=== PATIENT | female | born 1990 | race Caucasian/White ===

== ENCOUNTER → 2016-06-26 | Day surgery (SDC) | payer BC ==
[2016-06-19 15:37] VITALS: Ht 157.5 cm; Wt 50.0 kg
--- NOTE | 2016-06-25 15:18 | HISTORY & PHYSICAL EXAMINATION ---
DATE OF ADMISSION: 06/26/2016 HISTORY OF PRESENT ILLNESS: A 25-year-old presents for followup and preoperative evaluation requesting surgery to painful bunion deformity on her left foot. Severity of the condition is graded as a 7 on a 10 point scale gradually worsened over time. She describes the pain as intermittent and throbbing. Condition was first noted over 2 years ago. She denies any recent exposure, persistent pain or event or history of condition. Associated signs and symptoms include pain, pain ambulating in closed in shoe gear, pain with weightbearing. She indicates ice improves the condition and orthotics improves the condition and shoe gear improves the condition. Past treatment and tests include accommodative padding, accommodative shoes, insoles, nonsteroidals padding and shoe gear modification. Due to the nature and severity of the discomfort, the patient is requesting surgical intervention. PAST SURGICAL HISTORY: Oral surgery in 2014. PAST MEDICAL HISTORY: Ovarian cyst. MEDICATIONS: control pills. ALLERGIES: No known drug allergies. FAMILY HISTORY: Lung cancer, brain cancer, thyroid cancer, gastrointestinal problems, thyroid disease. SOCIAL HISTORY: The patient denies smoking, alcohol use, illicit drug use, and STDs. REVIEW OF SYSTEMS: Unremarkable except chief complaint. PHYSICAL EXAMINATION: VITAL SIGNS: BP 112/76, temperature is 98.6, height 5'2, weight 115 pounds. Body mass index 21. CONSTITUTIONAL: The patient appears well-developed and nourished with good attention to body grooming and habitus. HEAD AND FACE: Head is normocephalic and atraumatic without any gross head, face, or neck masses. EYES: Conjunctival and pupillary light and accommodation are normal. EARS, NOSE, MOUTH, AND THROAT: Unremarkable. Lips are pale and pink, moist without any lesions, or gingival hypertrophy. NECK EXAMINATION: Neck is supple. Trachea is midline without any adenopathy or crepitance palpable. CARDIOVASCULAR EXAMINATION: Normal S1, S2 without murmur, gallops, rubs, or clicks noted. Cardiovascular exam is normal. RESPIRATORY: Chest is symmetric. No scars are visible. No port or pacemaker. LUNGS: Clear to auscultation bilaterally and equal. GASTROINTESTINAL EXAMINATION: Abdominal organs, bladder, and kidneys show no abnormalities, masses, tenderness, or rigidity. LYMPHATIC EXAMINATION: No popliteal, inguinal, or supraclavicular lymphadenopathy noted. LOWER EXTREMITY EXAMINATION: Pulses bilaterally dorsalis pedis, posterior tibial pulse palpable. Digital hair is present. DERMATOLOGIC: Inspection of interphalangeal joint, metatarsophalangeal joint, left hallux shows hyperkeratosis. Left second intermetatarsal shows a tattoo. There is redness noted over the first MTPJ over the left hallux. NEUROLOGIC: Touch, pin, vibratory pain, proprioception sensations are normal. Deep tendon reflexes normal. MUSCULOSKELETAL: Muscle tone is normal. Muscle strength 5/5 all groups tested. First metatarsophalangeal joint shows evidence of painful palpable dorsal medial eminence on the left, track bound range of motion of left, painful end range of plantarflexion on the right. Left second and right second show retrograde buckling across the metatarsophalangeal joint. IMPRESSION: 1. Hallux abductovalgus deformity, left greater than right, degenerative joint disease, first metatarsophalangeal joint on the left, hammertoes, left second metatarsophalangeal joint bilaterally. 2. Difficulty walking. 3. Pain lower extremity on the left. PLAN: Discussed mechanical and conservative treatment options with the patient. Conservative treatment consisting of extra depth shoes, accommodative padding, palliative debridement, steroid injection, nonsteroidals, orthotics. Pneumatic COM immobilization. Due to the nature and severity of the discomfort, she is requesting surgical intervention and surgery to be performed: Surgical procedures to be performed Modified Miguel closing base wedge osteotomy, left foot. This will be performed under general anesthesia as an outpatient at surgery center. The procedure, risks and complications were fully reviewed with the patient. Consent form, foot diagram and illustration reviewed in all their entirety. All the patient's questions were answered. Complications were discussed in detail with the patient including pain, infection, swelling that may or may not be excessive, pins and needles feeling, delayed or nonhealing of skin, enlarged scar, failure of the procedure, recurrence or worsening of condition which may or may not require further surgery, adverse reaction to anesthesia, allergic reaction to suture or other implant material, loss of toe, foot, or leg, flail toe, stiff toe, short toe, elevated toe, transfer lesion or callus, peripheral neurovascular complications such as phlebitis, damage to nerves or vascular structures, severe or chronic pain, chronic nerve pain or damage, and general medical complications. The patient will be required to be in nonweightbearing in cast immobilized for 6-8 weeks followed by weightbearing cast immobilization for an additional 2-4 weeks and not to dress shoes for 10-16 weeks depending on the postoperative edema. The patient is aware this is an elective type procedure and I recommend a second opinion. The patient stated they understood. Consent form was signed with a copy of the foot diagram and illustration given to patient. Verbal and written postop instructions were given. The patient will be required to be nonweightbearing cast from 6-8 weeks and not return to dress shoe for 10-16 weeks depending on postop edema. The patient will return to the office for a postop check or sooner if medically necessary. Instructed to keep dressing clean, dry and intact until seen at the office. At time of the preoperative appointment, prescriptions for Percocet and Keflex were dispensed. The patient will return to the office for a postoperative visit. GABRIEL
[~2016-06-26] VITALS: Ht 157.5 cm; Wt 50.0 kg
[~2016-06-26] MED LIST: ATROPINE SULFATE 0.1 MG/ML 5ML SYR IV PRN; BCPILLS PO; BUPIVACAINE 0.5 % 5 MG/1 ML MPF 30ML VIAL ONE; CEFAZOLIN 1000MG/55 ML D5W IV SCH; DEXAMETHASONE SOD INJ 4 MG/ML VIAL IV PRN; DEXAMETHASONE SOD INJ 4 MG/ML VIAL ONE; EpHEDrine SULFATE INJ 50 MG/ML AMP IV PRN; FENTANYL CITRATE INJ 50 MCG/1 ML 2 ML VIAL IV PRN; FENTANYL CITRATE INJ 50 MCG/1 ML 2 ML VIAL ONE; KETOROLAC TROMETHAMINE 30 MG/ML VIAL IV. PRN; KETOROLAC TROMETHAMINE 30 MG/ML VIAL ONE; LABETALOL HCL IV 5 MG/ML 20ML IV PRN; LACTATED RINGER'S 1000ML 1,000 ML IV SCH; LIDOCAINE HCL 2% 2 ML VIAL (20MG/ML) ONE; METOCLOPRAMIDE HCL INJ 5 MG/ML 2 ML VIAL IV PRN; MIDAZOLAM HCL 1 MG/ML 2ML VIAL ONE; MoRPHine SULFATE 10 MG/ML CARP/VIAL IV PRN; ONDANSETRON INJ 2 MG/ML 2 ML VIAL IV PRN; ONDANSETRON INJ 2 MG/ML 2 ML VIAL ONE; PHENYLEPHRINE 100MCG/ML 5ML SYR IV PRN; PROPOFOL IV EMULSION 10 MG/ML 20 ML VIAL IV ONE; ROPIVACAINE 0.5% 5 MG/ML 30 ML VIAL ONE; SODIUM CHLORIDE 0.9% 1000ML 1,000 ML IV SCH
--- NOTE | 2016-06-26 06:26 | History & Physical Bridge - SC ---
H&P Re-Evaluation Bridge Note: I have examined the patient, reviewed the History & Physical and in the interval since the performance of the History & Physical I have noted the following changes of clinical significance: No changes noted
--- NOTE | 2016-06-26 06:27 | Discharge Instructions-SurgCtr ---
Discharge Instructions Visit Reason for Visit: Left Foot Hav Discharge Discharge Diagnosis / Problem: same as diagnosis Discharge Goals Goal(s): Decrease discomfort Activity Recommendations Activity Limitations: as noted below Medications: * Resume previous medications unless instructed by your surgeon. * Take your medications as prescribed. Call our office ([phone]) at any time, if you experience severe pain that does not subside shortly after taking your pain medication. Activity: * Do not put any standing weight on your operated foot/ankle. Use the crutches or walker as instructed. Special Care: * Keep your bandage clean and dry. Do not remove your bandage unless otherwise instructed. A small amount of blood may appear on the bandage over the surgical site. Call our office ([phone]) if you bandage becomes blood-soaked or wet. * Elevate your operated foot/ankle on pillows, above the level of your heart, as often as possible during the first 2-3 days following surgery. Keep your knee flexed slightly with a pillow under your knee when you elevate your foot/ankle. * Apply a ice bag to your foot/ankle over the operative site for 20-30 minutes out of each hour while you are awake. Do not allow the ice bag to directly contact bare skin. * Avoid bumping or handling any pins visible in your toes. If any pin feels or appears loose, call the office ([phone]). * Take your oral temperature in the morning and at bedtime. Call our office ([phone]) if your temperature rises above 101 degrees Fahrenheit. Call your surgeon's office at ([phone]) for any problems or concerns such as excessive bleeding and/or pain unrelieved by your prescribed pain medications. If you have any questions, please do not hesitate to ask them. Avoid all tobacco products. If you need help to stop smoking, call [place]'s FREE QUITLINE at . This is a free call. Follow-up: Follow-up with Dr. Pinon Anesthesia . Post Anesthesia Instructions: If you have had General Anesthesia or IV Sedation: * Do not drive today. * Resume driving when surgeon permits. * Do not make important decisions or sign legal documents today. * Call surgeon for: 1. Temperature elevations greater than 101 degrees F. 2. Uncontrollable pain. 3. Excessive bleeding. 4. Persistent nausea and vomiting. 5. Medication intolerance (nausea, vomiting or rash). * For nausea and vomiting use only clear liquids such as: tea, soda, bouillon until nausea subsides, then gradually increase diet as tolerated. * If you have any concerns or questions, call your surgeon's office. If physician is unavailable and it is an emergency, call 911 or go to the nearest emergency room. . Diet Recommendations Home Diet: resume previous diet Pending Studies Studies pending at discharge: no Medical Emergencies . Who to Call and When: Medical Emergencies: If at any time you feel your situation is an emergency, please call 911 immediately. . Non-Emergent Contact Non-Emergency issues call your: Primary Care Provider . . "Provider Documentation" section prepared by Rere Arguelles.
--- NOTE | 2016-06-26 09:02 | OPERATIVE REPORT ---
DATE OF OPERATION: 06/26/2016 SURGEON: Rere Pinon DPM PREOPERATIVE DIAGNOSES: 1. Bunion left. 2. Pain, left. 3. Capsulitis, left first metatarsophalangeal joint. POSTOPERATIVE DIAGNOSES: Same. ANESTHESIA: General with popliteal block performed by anesthesia and 10 mL of 0.5% Marcaine plain infiltrated in the surgery site. PROCEDURES: 1. Modified Miguel with tenotomy abductor hallucis, left. 2. Closing base wedge osteotomy, left. 3. Tenotomy extensor hallus brevis, left first MTPJ. HEMOSTASIS: Pneumatic calf tourniquet inflated to a level of 250 mmHg for a total tourniquet time of 46 minutes. ESTIMATED BLOOD LOSS: Minimal. MATERIALS: 2-0, 3-0 Vicryl; 4-0 nylon; 5-0 PDS; screws x2, 2.7 Synthes mini frag screws stainless measuring 14 and 18 mm. INJECTABLES: None. HISTOPATHOLOGY: Bone sent. COMPLICATIONS: None. DISPOSITION: The patient tolerated the procedure and anesthesia well without complications, transferred to recovery room with vital signs stable and neurovascular status intact. DESCRIPTION OF PROCEDURE: The patient was brought to the OR and placed on the OR table in supine position. Upon completion of general anesthesia by the anesthesia department and popliteal block at their recommendation and then recommended infiltrated the area with 10 mL Marcaine plain due to questionable block status. The area was infiltrated. The extremity was scrubbed, prepped and draped in the usual aseptic fashion prior to placing a well-padded calf tourniquet onto the left extremity. The extremity was scrubbed, prepped and draped. Attention was directed to the first metatarsophalangeal joint of the left foot where an incision was made just medial to tendon extensor hallucis longus. Dissection was carried down to the level of capsular structures. At this time, the abductor tendon tenotomy was performed releasing it from the lateral aspect of the joint. The sesamoid was under the first metatarsal, was bound down fair amount, although removal was not necessary. The ligaments were released from the sesamoid and it was under the first metatarsal head. At this time, a long linear capsulotomy was created in the first metatarsal. Attention was directed towards the base where a guidewire was placed medially. Osteotomy was created in the base of the first metatarsal reducing intermetatarsal angle temporarily fixated with a bone clamp, 2 screws in AO fashion, 1 perpendicular to the osteotomy and 1 perpendicular to the bone were placed across the osteotomy site. It should be noted that the medial cortical hinge was left intact during this and the metatarsal was slightly plantarflexed and with angulation, the toe account for any shortening. The wound was copiously lavaged with normal sterile saline. Closure began of the capsular structures using 2-0 Vicryl in a box technique. Skin margins were closed using 3-0 Vicryl in a box technique. Skin margins were closed using 5-0 PDS and subcutaneous fascia interspersed with 4-0 nylon in simple interrupted fashion. Pneumatic ankle tourniquet was released with normal george to digits 1 through 5. Dry sterile compressive dressing consisting of Adaptic, 4 x 4's, Johnna, Bennie, and a Cam walker were placed. It should be noted fluoroscan was used throughout the case to check for positioning and postop films were taken prior to recovery. I attest to the content of the Intraoperative Record and any orders documented therein. Any exceptions are noted below. GABRIEL
--- NOTE | 2016-06-26 09:48 | Anesthesia Progress Nt - [facility] ---
Anesthesia Post Op Note Date & Time Jun 26, 2016 at 09:48 Vital Signs Pain Intensity: 0 Vital Signs Past 12 Hours Date Time Temp Pulse Resp B/P Pulse Ox O2 Delivery O2 Flow Rate FiO2 06/26/16 09:15 90 16 114/44 98 Room Air 06/26/16 08:59 115/75 06/26/16 08:59 115/75 06/26/16 08:55 104 15 100 06/26/16 08:55 103 15 06/26/16 08:55 103 15 06/26/16 08:55 104 15 100 06/26/16 08:54 36.6 96 15 109/72 99 Room Air 06/26/16 08:53 109/72 06/26/16 08:53 109/72 06/26/16 08:50 98 11 99 06/26/16 08:50 97 11 06/26/16 08:50 98 11 99 06/26/16 08:50 97 11 06/26/16 08:48 120/68 06/26/16 08:48 120/68 06/26/16 08:45 106 16 06/26/16 08:45 106 16 99 06/26/16 08:45 106 16 99 06/26/16 08:45 106 16 06/26/16 08:44 112/77 06/26/16 08:44 112/77 06/26/16 08:40 104 10 06/26/16 08:40 104 10 100 06/26/16 08:40 104 10 100 06/26/16 08:40 104 10 06/26/16 08:38 104/75 06/26/16 08:38 104/75 06/26/16 08:35 100 12 100 06/26/16 08:35 100 12 06/26/16 08:35 100 12 100 06/26/16 08:35 100 12 06/26/16 08:33 110/68 06/26/16 08:33 110/68 06/26/16 08:30 114 14 06/26/16 08:30 36.7 114 12 115/67 99 Diffusion Mask 6 06/26/16 08:30 114 14 17 08:30 113 14 100 06/26/16 08:30 113 14 100 06/26/16 08:28 115/67 06/26/16 08:28 115/67 06/26/16 07:10 0 06/26/16 07:10 0 06/26/16 07:09 0 06/26/16 07:08 115/62 06/26/16 07:06 78 21 100 06/26/16 07:06 82 06/26/16 07:03 105/63 06/26/16 07:01 72 06/26/16 07:01 73 100 06/26/16 06:58 106/56 06/26/16 06:56 89 06/26/16 06:56 87 0 100 06/26/16 06:54 98/64 06/26/16 06:52 104/64 06/26/16 06:51 108 06/26/16 06:51 93 23 82 06/26/16 06:29 36.8 98 20 122/75 98 Room Air Notes Mental Status: alert / awake / arousable, participated in evaluation Pt Amnestic to Procedure: Yes Nausea / Vomiting: adequately controlled Pain: adequately controlled Airway Patency, RR, SpO2: stable & adequate BP & HR: stable & adequate Hydration State: stable & adequate Anesthetic Complications: no major complications apparent
[2016-06-26 09:50] VITALS: BP 106/71; TEMP 36.7; O2SAT 100
--- NOTE | 2016-06-26 12:53 | DIAGNOSTIC IMAGING REPORT ---
PORTABLE LEFT FOOT 2 VIEWS CLINICAL HISTORY: Postoperative study COMPARISON STUDY: None FINDINGS: 2 views reveal postsurgical changes of a first metatarsal osteotomy and bunionectomy. There are 2 metatarsal screws. There is air within the soft tissues consistent with recent surgery IMPRESSION: Postsurgical changes of a first metatarsal osteotomy. Electronically signed by: Poli White M.D. 06/26/2016 12:51 PM Dictated Date/Time: 06/26/2016 12:50 PM
--- NOTE | 2016-06-26 12:54 | DIAGNOSTIC IMAGING REPORT ---
INTRAOPERATIVE LEFT FOOT 2 VIEWS CLINICAL HISTORY: LEFT FOOT MODIFIED PATEL, OSTEOTOMY COMPARISON STUDY: None FLUOROSCOPY TIME: 2.9 seconds. 2 fluoroscopic spot images were obtained FINDINGS: 2 views reveal postsurgical changes of a first metatarsal osteotomy. 2 screws are visualized. The patient also appears be status post a first metatarsal head bunionectomy. IMPRESSION: Postsurgical changes of a first metatarsal osteotomy. Electronically signed by: Poli White M.D. 06/26/2016 12:52 PM Dictated Date/Time: 06/26/2016 12:51 PM
== END | disposition home or self-care (01) ==
LOC: X.SURG 06:19
PROVIDERS: ATTEND Podiatrist Foot & Ankle Surgery
DX: M21.612 Bunion of left foot (principal); N91.2 Amenorrhea, unspecified; E22.1 Hyperprolactinemia; E28.2 Polycystic ovarian syndrome; N39.0 Urinary tract infection, site not specified; N76.0 Acute vaginitis; Z83.49 Family history of other endocrine, nutritional and metabolic diseases; Z80.1 Family history of malignant neoplasm of trachea, bronchus and lung; Z80.8 Family history of malignant neoplasm of other organs or systems

== ENCOUNTER → 2016-12-09 | Outpatient (CLI) | payer BC ==
[~2016-12-09] MED LIST changes: -ATROPINE SULFATE 0.1 MG/ML 5ML SYR IV PRN; -BUPIVACAINE 0.5 % 5 MG/1 ML MPF 30ML VIAL ONE; -CEFAZOLIN 1000MG/55 ML D5W IV SCH; -DEXAMETHASONE SOD INJ 4 MG/ML VIAL IV PRN; -DEXAMETHASONE SOD INJ 4 MG/ML VIAL ONE; -EpHEDrine SULFATE INJ 50 MG/ML AMP IV PRN; -FENTANYL CITRATE INJ 50 MCG/1 ML 2 ML VIAL IV PRN; -FENTANYL CITRATE INJ 50 MCG/1 ML 2 ML VIAL ONE; -KETOROLAC TROMETHAMINE 30 MG/ML VIAL IV. PRN; -KETOROLAC TROMETHAMINE 30 MG/ML VIAL ONE; -LABETALOL HCL IV 5 MG/ML 20ML IV PRN; -LACTATED RINGER'S 1000ML 1,000 ML IV SCH; -LIDOCAINE HCL 2% 2 ML VIAL (20MG/ML) ONE; -METOCLOPRAMIDE HCL INJ 5 MG/ML 2 ML VIAL IV PRN; -MIDAZOLAM HCL 1 MG/ML 2ML VIAL ONE; -MoRPHine SULFATE 10 MG/ML CARP/VIAL IV PRN; -ONDANSETRON INJ 2 MG/ML 2 ML VIAL IV PRN; -ONDANSETRON INJ 2 MG/ML 2 ML VIAL ONE; -PHENYLEPHRINE 100MCG/ML 5ML SYR IV PRN; -PROPOFOL IV EMULSION 10 MG/ML 20 ML VIAL IV ONE; -ROPIVACAINE 0.5% 5 MG/ML 30 ML VIAL ONE; -SODIUM CHLORIDE 0.9% 1000ML 1,000 ML IV SCH
== END | disposition home or self-care (01) ==
LOC: C.PAPS 14:16
PROVIDERS: ATTEND Obstetrics & Gynecology
DX: Z01.419 Encounter for gynecological examination (general) (routine) without abnormal findings (principal)

== ENCOUNTER → 2016-12-27 | Outpatient (CLI) | payer BC | END | disposition home or self-care (01) | LOC: C.LAB1850 09:14 | PROVIDERS: ATTEND Obstetrics & Gynecology | DX: E22.1 Hyperprolactinemia (principal) ==

== ENCOUNTER → 2017-01-31 | Outpatient (CLI) | payer BC ==
--- NOTE | 2017-01-31 14:41 | DIAGNOSTIC IMAGING REPORT ---
LEFT LOWER EXTREMITY WITHOUT CLINICAL HISTORY: 26 years-old Female presenting with LEFT FOOT, OSTEOTOMY HEALING. TECHNIQUE: Multidetector CT of the left foot was performed without the use of intravenous contrast. IV contrast: None. A dose lowering technique was used consistent with the principles of ALARA (as low as reasonably achievable). COMPARISON: Plain film from 06/26/2016. CT DOSE (mGy.cm): The estimated cumulative dose is 64.58. 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 2 screw fixation across the proximal metaphysis of the first metatarsal. This is unchanged from prior radiograph and June 2016. Evidence of interval healing of the proximal metaphyseal fracture with bridging callus formation. A fracture plane is no longer visible. No hardware complication evident. No malalignment. No significant degenerative change at the medial cuneiform metatarsal articulation. No other bony abnormality. Ankle mortise intact. IMPRESSION: 2 screw fixation of the proximal metaphysis of the first metatarsal. No fracture plane is evident. No hardware complication. Electronically signed by: Emanuel Sterling M.D. 01/31/2017 2:39 PM Dictated Date/Time: 01/31/2017 2:36 PM
== END | disposition home or self-care (01) ==
LOC: C.CTS 14:13
PROVIDERS: ATTEND Podiatrist Foot & Ankle Surgery
DX: M79.672 Pain in left foot (principal)

== ENCOUNTER 2017-04-29 05:31 | Day surgery (SDC) | payer BC ==
[2017-04-15 12:55] VITALS: Ht 157.5 cm; Wt 50.9 kg
--- NOTE | 2017-04-28 09:33 | HISTORY & PHYSICAL EXAMINATION ---
DATE OF ADMISSION: 04/29/2017 HISTORY OF PRESENT ILLNESS: This 26-year-old female presents for preop history and physical, requesting excision of hardware. She notes itching sensation located over the left foot and prominence of the hardware. She underwent bunion correction of left foot in June 2016 and is requesting hardware excision. The itching sensation ____ local irritation directly over the area of hardware. She grades this discomfort as a 5 on a 10 point scale and described it as a soreness. She first noticed it several months ago and started shortly, following the left foot surgery. Associated signs and symptoms include itching. The patient is requesting surgery for removal of hardware to the left foot. Past treatment and tests include CT scan of the left foot, accommodative padding, and accommodative shoes. Due to a local irritation, she is requesting hardware removal. PAST SURGICAL HISTORY: Oral surgery in 2014 and foot surgery in 2016. PAST MEDICAL HISTORY: Ovarian cyst. MEDICATIONS: control pills. ALLERGIES: No known medical allergies. FAMILY HISTORY: Lung cancer, brain cancer, thyroid cancer, gastrointestinal problems, and thyroid disease. SOCIAL HISTORY: The patient denies smoking, alcohol use, illicit drug use, and STDs. REVIEW OF SYSTEMS: Unremarkable except chief complaint. PHYSICAL EXAMINATION: VITAL SIGNS: Height 5 feet 2 inches and weight 114 pounds. Body mass index 21. Blood pressure is 110/72. CONSTITUTIONAL: The patient appears well developed and nourished with good attention to body grooming and habitus. HEAD AND FACE: Head is normocephalic and atraumatic without any gross head, face, or neck masses. EYES: Conjunctival and pupillary reaction to light and accommodation are normal. EARS, NOSE, MOUTH, AND THROAT: Unremarkable. NECK: Neck is supple. Trachea is midline without any adenopathy or crepitance palpable. CARDIOVASCULAR: Normal S1 and S2 without murmur, gallops, rubs, or clicks noted. Cardiovascular exam is normal. RESPIRATORY: Chest is symmetric. No scars are visible. No port or pacemaker. LUNGS: Clear to auscultation bilaterally and equal. GASTROINTESTINAL: Abdominal organs, bladder, and kidneys show no abnormalities, masses, tenderness, or rigidity. LYMPHATIC: No popliteal, inguinal, or supraclavicular lymphadenopathy noted. LOWER EXTREMITY EXAMINATION: Feet are pink and warm with no evidence of vascular insufficiency. Postoperative site shows evidence of edema. DERMATOLOGIC: Left first MTP joint shows cicatrix. The right hallux shows redness. Examination of the surgery site shows no hypertrophy. There is a palpable screw head noted medially on deep palpation. NEUROLOGICAL: Touch, pin, vibratory and proprioception sensations are normal. MUSCULOSKELETAL: Muscle tone is normal. Muscle strength 5/5 at all groups tested. Alignment of the first ray is good on the left. ____ fracture plane is no longer visible on 01/31/2017 on the left foot. IMPRESSION: 1. Hallux abductovalgus deformity, status post surgery on the left. 2. Local irritation due to retained hardware, left foot. PLAN: Surgical procedure to be performed is excision of hardware in the left. This will be performed under general anesthesia as an outpatient at the hospital. The procedure, risks and complications were fully reviewed with the patient. Consent form, foot diagram and illustration reviewed in all their entirety. All the patient's questions answered. Complications were discussed in detail with the patient including pain, infection, swelling that may or may not be excessive, pins and needles feeling, numbness, metatarsalgia, excessive bleeding, delayed or nonhealing bone, delayed or nonhealing of skin, enlarged scar, failure of the procedure, reoccurrence or worsening condition which may or may not require further surgery, adverse reactions to anesthesia, allergic reaction to suture or other implant material, loss of toe, foot, or leg, flail toe, stiff toe, short toe, elevated toe, transfer lesion or callus, peripheral neurovascular complications such as phlebitis, damage to nerves or vascular structures, severe or chronic pain, chronic nerve pain or damage, and general medical complications. The patient will be required to be in a Cam walker for a minimum of 2-4 weeks and not return to sneaker for 2-4 weeks depending on postop edema. The patient is aware that this is an elective type procedure and I recommend a second opinion. The patient stated she understood. Consent form was signed with a copy of the foot diagram and illustration given to the patient. Verbal and written postop instructions were given. The patient will return to the office for postop check or sooner if medically necessary. Instructed to keep dressing clean, dry and intact until seen at the office. At time of the preoperative appointment, prescriptions for Keflex and acetaminophen were dispensed.
[2017-04-28 10:13] LABS: PREG INTERNAL NEGATIVE QC NEG CLEAR BACKGROUND; PREG INTERNAL POSITIVE QC POS CONTROL LINE
[~2017-04-29] VITALS: Ht 157.5 cm; Wt 50.9 kg
[~2017-04-29 05:31] MED LIST changes: +MULT-580 PO
[2017-04-29] MEDS ORDERED: CEFAZOLIN 1000MG IV PUSH 5 ML IV SCH (06:00)
[2017-04-29] MEDS ORDERED: LACTATED RINGER'S 1000ML 1,000 ML IV SCH ×2 (06:00)
[2017-04-29 06:05] VITALS: BP 129/71; PULSE 111; TEMP 36.6; O2SAT 99
[2017-04-29] MEDS ORDERED: BUPIVACAINE 0.5 % 5 MG/1 ML MPF 30ML VIAL ONE (06:56)
[2017-04-29] MEDS ORDERED: SODIUM CHLORIDE 0.9% 1000ML 1,000 ML IV SCH (07:02)
--- NOTE | 2017-04-29 07:02 | Discharge Instructions ---
Discharge Instructions Date of Service Apr 29, 2017. Admission Reason for Admission: Left Foot S/P Hallux Abducto Valgus Surgery W/Breana Discharge Discharge Diagnosis / Problem: same as Dx Discharge Goals Goal(s): Decrease discomfort Activity Recommendations Activity Limitations: as noted below Medications: * Resume previous medications unless instructed by your surgeon. * Take your medications as prescribed. Call our office ([phone]) at any time, if you experience severe pain that does not subside shortly after taking your pain medication. Activity: * You may walk on your operated foot/ankle using the surgical shoe or cast/splint. Do not put any weight on your operated foot/ankle without wearing the surgical shoe or cast sandal.. Special Care: * Keep your bandage clean and dry. Do not remove your bandage unless otherwise instructed. A small amount of blood may appear on the bandage over the surgical site. Call our office ([phone]) if you bandage becomes blood-soaked or wet. * Elevate your operated foot/ankle on pillows, above the level of your heart, as often as possible during the first 2-3 days following surgery. Keep your knee flexed slightly with a pillow under your knee when you elevate your foot/ankle. * Apply a ice bag to your foot/ankle over the operative site for 20-30 minutes out of each hour while you are awake. Do not allow the ice bag to directly contact bare skin. * Avoid bumping or handling any pins visible in your toes. If any pin feels or appears loose, call the office ([phone]). * Take your oral temperature in the morning and at bedtime. Call our office ([phone]) if your temperature rises above 101 degrees Fahrenheit. Call your surgeon's office at ([phone]) for any problems or concerns such as excessive bleeding and/or pain unrelieved by your prescribed pain medications. If you have any questions, please do not hesitate to ask them. Avoid all tobacco products. If you need help to stop smoking, call [place] FREE QUITLINE at . This is a free call. Follow-up: Follow-up with Dr. Pinon . Current Hospital Diet Patient's current hospital diet: Discharge Diet Recommended Diet: Regular Diet Pending Studies Studies pending at discharge: no Medical Emergencies . Who to Call and When: Medical Emergencies: If at any time you feel your situation is an emergency, please call 911 immediately. . Non-Emergent Contact Non-Emergency issues call your: Primary Care Provider . "Provider Documentation" section prepared by Rere Arguelles. . VTE Core Measure Inpt VTE Proph given/why not?: Contraindicated
[2017-04-29] MEDS ORDERED: MIDAZOLAM HCL 1 MG/ML 2ML VIAL ONE (07:04)
[2017-04-29] MEDS ORDERED: LIDOCAINE HCL 2% 2 ML VIAL (20MG/ML) ONE (07:04)
[2017-04-29] MEDS ORDERED: FENTANYL CITRATE INJ 50 MCG/1 ML 2 ML VIAL ONE ×2 (07:04→07:41)
[2017-04-29] MEDS ORDERED: PROPOFOL IV EMULSION 10 MG/ML 20 ML VIAL IV ONE (07:04)
[2017-04-29] MEDS ORDERED: ONDANSETRON INJ 2 MG/ML 2 ML VIAL ONE (07:32)
[2017-04-29] MEDS ORDERED: ONDANSETRON INJ 2 MG/ML 2 ML VIAL IV PRN (08:15)
[2017-04-29] MEDS ORDERED: NALOXONE HCL 0.4 MG/1 ML VIAL/CARP IV PRN (08:15)
[2017-04-29] MEDS ORDERED: ATROPINE SULFATE 0.1 MG/ML 5ML SYR IV PRN (08:15)
[2017-04-29] MEDS ORDERED: FLUMAZENIL 0.1 MG/1 ML 10 ML VIAL IV PRN (08:15)
[2017-04-29] MEDS ORDERED: HYDROmorphone INJ 1 MG/ML SYR IV PRN (08:15)
[2017-04-29] MEDS ORDERED: LABETALOL HCL IV 5 MG/ML 20ML IV PRN (08:15)
[2017-04-29] MEDS ORDERED: PROMETHAZINE HCL INJ 12.5 MG in SODIUM CHLORIDE 0.9% 50ML 50 ML IV PRN (08:15)
[2017-04-29] MEDS ORDERED: EpHEDrine SULFATE INJ 50 MG/ML AMP IV PRN (08:15)
[2017-04-29 08:40] VITALS: BP 109/56; PULSE 73; TEMP 36.9; O2SAT 97
--- NOTE | 2017-04-29 08:44 | Anesthesiology Progress Note ---
Anesthesia Post Op Note Date & Time Apr 29, 2017 at 08:44 Vital Signs Pain Intensity: 0 Vital Signs Past 12 Hours Date Time Temp Pulse Resp B/P (MAP) Pulse Ox O2 Delivery O2 Flow Rate FiO2 04/29/17 08:27 72 20 97 04/29/17 08:27 72 20 04/29/17 08:26 36.6 69 17 96/75 (80) 97 Room Air 04/29/17 08:26 96/75 04/29/17 08:22 78 15 97 04/29/17 08:22 73 15 04/29/17 08:21 97/70 04/29/17 08:19 64 11 98 04/29/17 08:19 64 11 04/29/17 08:16 92/61 04/29/17 08:14 79 14 04/29/17 08:14 77 14 97 04/29/17 08:11 106/77 04/29/17 08:09 83 16 04/29/17 08:09 81 16 97 04/29/17 08:06 103/68 04/29/17 08:04 36.7 73 16 105/67 (70) 99 Oxymask 10 04/29/17 06:05 36.6 111 18 129/71 (90) 99 Room Air Notes Mental Status: alert / awake / arousable, participated in evaluation Pt Amnestic to Procedure: Yes Nausea / Vomiting: adequately controlled Pain: adequately controlled Airway Patency, RR, SpO2: stable & adequate BP & HR: stable & adequate Hydration State: stable & adequate Anesthetic Complications: no major complications apparent
--- NOTE | 2017-04-29 08:54 | OPERATIVE REPORT ---
DATE OF OPERATION: 04/29/2017 SURGEON: Rere Pinon DPM PREOPERATIVE DIAGNOSIS: Status post hallux abductovalgus surgery with retained fixation. POSTOPERATIVE DIAGNOSIS: Same. PROCEDURE: Excision of hardware, left foot x2. HEMOSTASIS: Pneumatic ankle tourniquet inflated to a level of 250 mmHg for a total tourniquet time of 14 minutes. ESTIMATED BLOOD LOSS: 1 mL. ANESTHESIA: IV with local sedation and preoperative block given 0.5% Marcaine plain, total of 30 mL. MATERIALS: 3-0 Vicryl and 4-0 nylon. INJECTABLES: None. HISTOPATHOLOGY: Hardware sent. CONDITION: The patient tolerated the procedure and anesthesia well without complications and transferred to the recovery room with vital signs stable and neurovascular status intact. DESCRIPTION OF PROCEDURE: The patient was brought to the OR and placed on the OR table in the supine position. Upon completion of IV with local sedation, a local field block was performed with 30 mL 0.5% Marcaine plain. The foot was scrubbed, prepped and draped in the usual aseptic fashion. Attention was directed to the left foot, which was elevated and exsanguinated and tourniquet raised to a level of 250 mmHg. Using the fluoroscan, the hardware was identified. An incision was made directly over the hardware between the 2 screws with care to preserve all neurovascular structures. Dissection plane was carried down to the level of the metatarsal. Two implants 2.7 screws were removed from this area. The area was copiously lavaged. Closure began with 3-0 Vicryl in a deep mattress fashion. Skin margins were reopposed using 4-0 nylon in a simple interrupted fashion. Pneumatic ankle tourniquet was released with normal hyperemic george to digits 1 through 5. Dry sterile compressive dressing consisting of Adaptic, 4 x 4's, Johnna and an Bennie was applied. The patient was transported to the recovery room with vital signs stable and neurovascular status intact. I attest to the content of the Intraoperative Record and any orders documented therein. Any exception s are noted below.
[2017-04-29 09:08] VITALS: BP 103/68; PULSE 76; O2SAT 96
[2017-04-29 09:40] VITALS: BP 104/60; PULSE 84; TEMP 37; O2SAT 100
--- NOTE | 2017-04-29 14:45 | DIAGNOSTIC IMAGING REPORT ---
INTRAOPERATIVE LEFT FOOT 2 VIEWS CLINICAL HISTORY: LEFT FOOT EXCISION OF HARDWARE COMPARISON STUDY: CT scan dated 01/31/2017 FINDINGS: 10 seconds of fluoroscopic time was utilized. 2 intraoperative fluoroscopic spot images are provided for interpretation. There is a screw tract within the first metatarsal. The hardware has been removed. There are postsurgical changes of a prior first metatarsal osteotomy. IMPRESSION: Intraoperative radiographs demonstrating interval removal of the first metatarsal hardware. Electronically signed by: Poli White M.D. 04/29/2017 2:43 PM Dictated Date/Time: 04/29/2017 12:43 PM
== END 2017-04-29 09:45 | disposition home or self-care (01) ==
LOC: C.ACU 05:31
PROVIDERS: ATTEND Podiatrist Foot & Ankle Surgery
DX: Z47.2 Encounter for removal of internal fixation device (principal)

== ENCOUNTER 2020-02-15 06:10 | Inpatient (IN) ==
[2020-02-15] MEDS ORDERED: OXYTOCIN 30 UNITS/500ML NSS ONE (06:29)
[2020-02-15] MEDS ORDERED: OXYTOCIN 30 UNITS/500 ML BAG IV PRN ×2 (06:40→11:02)
[2020-02-15] MEDS ORDERED: LACTATED RINGER'S 1,000 ML IV PRN (06:40)
[2020-02-15 07:00] LABS: Hematocrit (blood only) 31.4 % (37-47); Hemoglobin 9.8 g/dL (12.0-16.0); Mean Corpuscular Hemoglobin 27.1 pg (25-34); Mean Platelet Volume 12.2 fL (7.4-10.4); Nucleated RBC # (auto) 0.02 K/uL (0-0); Nucleated RBC % (auto) 0.2 %; Platelet Count 289 K/uL (130-400); RDW Coefficient of Variation 15.6 % (11.5-14.5); RDW Standard Deviation 49.8 fL (36.4-46.3); Red Blood Count 3.61 M/uL (4.2-5.4); White Blood Count 13.08 K/uL (4.8-10.8)
[2020-02-15 07:11] LABS: Mean Corpuscular Hgb Conc 31.2 g/dL (32-36)
--- NOTE | 2020-02-15 07:23 | History & Physical Report ---
Date of Service February 15, 2020 Assessment & Plan (1) Normal labor: Watched patient through several contractions and then was able to reduce ant lip. Patient is very painful and not pushing effectively. Anesthesia is willing to place a spinal so she can relax some and push more effectively. FHT reassuring category two with variables with contractions. anticipate . (2) Meconium in amniotic fluid: Admission and Anticipated Discharge Date Admission Date: February 15, 2020 History of Present Illness Primary Care Provider: Cesar Lainez MD Patient is a 29yowf with iup at 40 1/7 weeks who presents to labor and delivery in active labor. Called me noting ctx started at 3am. She rom as they were pulling into the parking lot. meconium fluid. Very uncomfortable. complicated by QS + for DS with normal panorama. nsts have been reactive. labs--O+/ab-/ri/rpr/hepb-/hiv-/gc/ct-/ qs positive/ panorama low risk/gbs neg/ covid neg (02/08) Allergies Allergy/AdvReac Type Severity Reaction Status Date / Time No Known Drug Allergies Allergy Verified 02/11/20 08:57 Home Medications Home Medications Medication Instructions Recorded Confirmed Type vit no.[id number] 1 tab PO DAILY 02/15/20 02/15/20 History [ Vitamin] Patient History Medical History Cystic acne vulgaris Dry cough Encounter for anatomic survey H/O amenorrhea Hyperprolactinemia PCOS (polycystic ovarian syndrome) Varicella vaccine Surgical History History of bunionectomy Family History Father Lung cancer Hypothyroidism Sister Hypothyroidism Thyroid cancer Aunt Hypothyroidism Mother Hypothyroidism Ovarian cyst Fibroids Family/Other Twins, both liveborn Denies family history of Ovarian cancer Breast cancer Colorectal cancer Social History Smoking Status: Never smoker Second Hand Exposure: No; Hx Alcohol Use: No Hx Substance Use: No Preferred Language: B[place] Visual Impairment: No Limitations Hearing Ability: Normal 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 Beliefs That Will Affect Care: None marital status: marital status details: Daniel Cordon (27) [phone] Current Living Situation: Spouse Current Living Situation Comment: lives with spouse, 3 dogs current occupational status: employed 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 Childhood Exposure to Second-Hand Smoke: Yes caffeine: Yes during the past year weight has: remained stable Dental Care, Regularly: Yes Physical Activity Frequency: 1-2 Times per Week Seatbelt Use: sometimes Sunscreen Use: Yes OB History g1--present 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 Results & Data ([facility]) Vital Signs (Past 12 Hours) Vital Signs Pulse Pulse Ox 02/15/20 07:18 102 H 96 02/15/20 07:13 108 H 96 02/15/20 07:12 96 H 78 L 02/15/20 07:08 88 97 02/15/20 07:03 80 97 02/15/20 07:00 110 H 94 02/15/20 06:58 89 98 02/15/20 06:53 89 98 02/15/20 06:52 108 H 87 L 02/15/20 06:48 84 99 02/15/20 06:43 81 98 02/15/20 06:38 80 97 02/15/20 06:37 104 H 94 02/15/20 06:33 83 99 02/15/20 06:28 88 99 Coding Level of Care Code None Diagnoses Normal labor O80; Z37.9 Meconium in amniotic fluid P96.83
[2020-02-15] MEDS ORDERED: fentaNYL citrate 100 MCG/2 ML VIAL ONE (07:27)
[2020-02-15] MEDS ORDERED: BUPIVACAINE 0.5 % 5 MG/1 ML PF 10ML VIAL ONE (07:29)
[2020-02-15] MEDS ORDERED: BUPIVACAINE 0.25% 30 ML VIAL ONE (07:32)
--- NOTE | 2020-02-15 07:35 | Anesthesiology Consultation ---
Date of Service February 15, 2020 Assessment & Plan Chart Review Chart Review: Patient NOT seen in Pre Admission Testing and Acceptable Risk for Labor Epidural Consults Requested none ASA ASA2 Proposed Anesthesia Anesthesia Type: Spinal Risk / Benefits Reviewed With: PT / POA / Parent / Guardian, Accepts Plan and Informed Consent Obtained History Height/Weight Height: 5 ft 2 in Weight: 63 kg Allergies Allergy/AdvReac Type Severity Reaction Status Date / Time No Known Drug Allergies Allergy Verified 02/11/20 08:57 Medications Home Medications Medication Instructions Recorded Confirmed Last Taken vit no.[id number] 1 tab PO DAILY 02/15/20 02/15/20 02/14/20 [ Vitamin] Active Medications Generic Name Dose Route Start Last Admin Trade Name Freq PRN Reason Stop Dose Admin Lactated Ringer's 1,000 mls @ 125 mls/hr 02/15/20 06:40 02/15/20 07:29 Lr IV 02/17/20 06:39 125 mls/hr .Q8H PRN Administration L&D Protocol Protocol NPO Date Last Intake of Fluids: 03/15/20 Time Last Intake of Fluids: 07:33 Date Last Intake of Solids: 03/15/20 Time Last Intake of Solids: 07:33 Past Medical History Medical History Cystic acne vulgaris Dry cough Encounter for anatomic survey H/O amenorrhea Hyperprolactinemia PCOS (polycystic ovarian syndrome) Varicella vaccine Exercise / Class Metabolic Activity II 4-5 Yardwork/Stairs/Walk up hill Past Family History Family History Father Lung cancer Hypothyroidism Sister Hypothyroidism Thyroid cancer Aunt Hypothyroidism Mother Hypothyroidism Ovarian cyst Fibroids Family/Other Twins, both liveborn Denies family history of Ovarian cancer Breast cancer Colorectal cancer Past Surgical History Surgical History History of bunionectomy Past Anesthesia History No Hx of Anesthesia Complications History of PONV No Hx of PONV Social History Smoking Status: Never smoker Hx Alcohol Use: No Hx Substance Use: No Review of Systems Patient denies history of abnormal bleeding or bleeding disorder. Patient denies active use of anticoagulants other than low dose aspirin. Patient denies numbness, tingling or weakness in lower extremities. Physical Exam Vital Signs Last Vital Signs Pulse 97 H 02/15/20 07:29 BP 128/58 L 02/15/20 07:29 Pulse Ox 96 02/15/20 07:28 Constitutional not obese ENMT Mouth: no TMJ abnormality and oral opening not small Thyromental Distance: > or= 3.5 Finger Breadths Mallampati Class: II Neck normal visual inspection; neck extension not limited Respiratory normal respiratory effort Auscultation: lungs clear to auscultation bilaterally Cardiovascular Rate/Rhythm: regular rate and regular rhythm Heart Sounds: no murmur Neurologic moves all extremities Psychiatric Orientation: alert and oriented x 3 Testing Laboratory Results 02/15/20 06:47
--- NOTE | 2020-02-15 08:11 | Obstetrical Progress Note ---
Date of Service February 15, 2020 Assessment & Plan (1) Normal labor: Admission and Anticipated Discharge Date Admission Date: February 15, 2020 Will give a little rest and then will begin pushing. Fetus overall reassuring. anticipate . Subjective patient got spinal and doing better. Physical Exam Constitutional: WD/WN, vitals as above Psychiatric: A+Ox3, euthymic affect Genitourinary: toco--q2min efm--130s with mod variability, small accels, variables with some contractions Results & Data ([facility]) Vital Signs (Past 12 Hours) Vital Signs Pulse BP Pulse Ox 02/15/20 08:08 78 105/52 L 02/15/20 08:06 81 107/53 L 02/15/20 08:04 84 111/56 L 02/15/20 08:03 78 98 02/15/20 08:02 81 106/56 L 02/15/20 08:00 78 107/56 L 02/15/20 07:58 86 98/55 L 97 02/15/20 07:56 76 98/55 L 02/15/20 07:53 86 124/54 L 97 02/15/20 07:48 102 H 98 02/15/20 07:47 86 119/58 L 02/15/20 07:43 80 95 02/15/20 07:42 123 H 93 02/15/20 07:38 99 H 96 02/15/20 07:34 118 H 93 02/15/20 07:33 89 95 02/15/20 07:29 97 H 128/58 L 02/15/20 07:28 111 H 96 02/15/20 07:23 117 H 96 02/15/20 07:21 86 87 L 02/15/20 07:18 102 H 96 02/15/20 07:13 108 H 96 02/15/20 07:12 96 H 78 L 02/15/20 07:08 88 97 02/15/20 07:03 80 97 02/15/20 07:00 110 H 94 02/15/20 06:58 89 98 02/15/20 06:53 89 98 02/15/20 06:52 108 H 87 L 02/15/20 06:48 84 99 02/15/20 06:43 81 98 02/15/20 06:38 80 97 09/08/20 06:37 104 H 94 02/15/20 06:33 83 99 02/15/20 06:28 88 99 PG Care Time/CCT Total # of Minutes Spent Total Time Spent with Patient: Total time spent is greater than 50% in coordination of care (as documented) at patient's floor/unit and/or counseling patient: Coding Level of Care Code None Diagnoses Normal labor O80; Z37.9
--- NOTE | 2020-02-15 10:44 | Delivery Summary ---
Vaginal Delivery Summary Date of Service February 15, 2020 Vaginal Delivery Summary Patient was admitted for labor and delivery by Dr. Fong then came conference coordinator at 830 in the patient at that stage had a spinal and was pushing. Initially the baby's position was occiput posterior but then it converted to occiput anterior to deliver the baby vaginally with some meconium noted mouth and nares suctioned with the bulb baby was delivered with gentle traction no excessive force used there was no nuchal cord live vigorous female cord clamped and cut cord gases obtained cord blood obtained placenta was removed with traction IV Pitocin started hemostasis improved there was a small periclitoral tear and a second- degree vaginal laceration local anesthetic was injected and repair was performed in usual fashion with 3-0 Vicryl at the end of the procedure sponge and instrument counts were correct estimated blood loss 250 mL MNPG Vaginal Delivery Charge Procedure Anesthesia type: Spinal Labor Stage Duration Labor - Stage 1 Duration: 3.80 Labor - Stage 2 Duration: 2.05 Labor - Stage 3 Duration: 6 Total Length of Labor: 5.95
[2020-02-15] MEDS ORDERED: SUPERCREAM 0.870% 15 GM JAR EXT PRN (11:02)
[2020-02-15] MEDS ORDERED: BENZOCAINE 20% AER SPR 82.5 GM CAN EXT PRN (11:02)
[2020-02-15] MEDS ORDERED: DIPHTHERIA/TETANUS/PERTUSSIS 0.5 ML SYR/VIAL IM ONE (11:02)
[2020-02-15] MEDS ORDERED: bisacodyL 10 MG SUPP PR PRN (11:02)
[2020-02-15] MEDS ORDERED: HYDROCORTISONE ACETATE 25 MG SUPP PR PRN (11:02)
[2020-02-15] MEDS ORDERED: OXYCODONE/ACETAMINOPHEN 5mg/325mg TAB PO PRN (11:02)
[2020-02-15] MEDS ORDERED: ACETAMINOPHEN 325 MG TAB PO PRN (11:02)
[2020-02-15 11:07] LABS: Base Excess Cord Venous Blood -9.4 mEq/L (-7.7-1.9); Cord Venous Blood HCO3 16 mmol/L (18.4-26.8); Cord Venous Blood PCO2 34 mmHg (30.4-57.2); Cord Venous Blood PO2 26 mmHg (14.1-43.3); Cord Venous Blood pH 7.29 (7.20-7.44)
[2020-02-15 11:12] LABS: CO2 Cord Arterial Blood 46 mmHg (39.1-73.5); HCO3 Cord Arterial Blood 18 mmol/L (19.7-28.5); PO2 Cord Arterial Blood 20 mmHg (4.1-31.7)
[2020-02-15 11:16] LABS: O2 Saturation Cord Venous Bld < 60.0 % (<68); Oxygen Sat Cord Arterial Blood < 60.0 % (<60)
[2020-02-15] MEDS: IBUPROFEN 600 MG TAB PO PRN ×2 (11:16→17:32)
--- NOTE | 2020-02-15 11:49 | Anesthesiology Progress Note ---
Date of Service February 15, 2020 Anesthesia Post Procedure Vital Signs Vital Signs: Temp Pulse Resp BP Pulse Ox 02/15/20 11:42 85 122/73 02/15/20 11:27 93 H 128/60 02/15/20 11:24 98 H 132/66 02/15/20 11:14 104 H 115/56 L 02/15/20 11:09 102 H 113/65 02/15/20 10:58 113 H 116/68 02/15/20 10:48 122 H 100 02/15/20 10:43 98 H 99 02/15/20 10:40 36.7 C 106 H 18 132/63 99 02/15/20 10:39 106 H 132/63 02/15/20 10:38 104 H 99 02/15/20 10:33 113 H 139/60 99 02/15/20 10:28 115 H 98 02/15/20 10:25 117 H 94 02/15/20 10:23 113 H 96 02/15/20 10:20 164 H 175/98 H 02/15/20 10:18 131 H 93 02/15/20 10:13 134 H 96 02/15/20 10:12 138 H 91 02/15/20 10:08 132 H 94 02/15/20 10:06 130 H 91 02/15/20 10:03 125 H 96 02/15/20 10:02 137 H 145/65 H 02/15/20 09:58 120 H 95 02/15/20 09:53 141 H 97 02/15/20 09:48 130 H 149/67 H 94 02/15/20 09:47 112 H 93 02/15/20 09:43 126 H 94 02/15/20 09:42 117 H 128/58 L 94 02/15/20 09:38 122 H 94 02/15/20 09:33 131 H 94 02/15/20 09:28 96 H 95 02/15/20 09:25 90 86 L 02/15/20 09:23 115 H 95 02/15/20 09:18 118 H 138/89 95 02/15/20 09:13 106 H 95 02/15/20 09:12 115 H 88 L 02/15/20 09:08 113 H 95 02/15/20 09:03 94 H 96 02/15/20 09:00 115 H 133/60 89 L 09/08/20 08:58 93 H 96 02/15/20 08:54 112 H 110/74 02/15/20 08:53 133 H 97 02/15/20 08:51 114 H 92 02/15/20 08:50 116 H 110/51 L 02/15/20 08:48 88 97 02/15/20 08:46 100 H 125/58 L 02/15/20 08:45 110 H 90 02/15/20 08:43 94 H 97 02/15/20 08:39 92 H 110/58 L 02/15/20 08:38 113 H 97 02/15/20 08:35 81 106/57 L 02/15/20 08:33 81 99 02/15/20 08:31 85 92 02/15/20 08:29 104 H 105/57 L 02/15/20 08:28 104 H 98 02/15/20 08:26 97 H 111/62 02/15/20 08:24 97 H 111/65 02/15/20 08:23 86 98 02/15/20 08:22 81 110/59 L 02/15/20 08:20 83 107/58 L 02/15/20 08:18 110 H 104/61 97 02/15/20 08:16 85 101/55 L 02/15/20 08:14 78 105/59 L 02/15/20 08:13 83 98 02/15/20 08:12 86 110/55 L 02/15/20 08:10 86 105/55 L 02/15/20 08:08 84 105/52 L 97 02/15/20 08:06 81 107/53 L 02/15/20 08:05 36.7 C 77 18 98/55 L 97 02/15/20 08:04 84 111/56 L 02/15/20 08:03 78 98 02/15/20 08:02 81 106/56 L 02/15/20 08:00 78 107/56 L 02/15/20 07:58 86 98/55 L 97 02/15/20 07:56 76 98/55 L 02/15/20 07:53 86 124/54 L 97 02/15/20 07:48 102 H 98 02/15/20 07:47 86 119/58 L 02/15/20 07:43 80 95 02/15/20 07:42 123 H 93 02/15/20 07:38 99 H 96 02/15/20 07:34 118 H 93 02/15/20 07:33 89 95 02/15/20 07:29 97 H 128/58 L 02/15/20 07:28 111 H 96 02/15/20 07:23 117 H 96 02/15/20 07:21 86 87 L 02/15/20 07:18 102 H 96 02/15/20 07:13 108 H 96 02/15/20 07:12 96 H 78 L 02/15/20 07:08 88 97 02/15/20 07:03 80 97 02/15/20 07:00 110 H 94 02/15/20 06:58 89 98 02/15/20 06:53 89 98 02/15/20 06:52 108 H 87 L 02/15/20 06:48 84 99 02/15/20 06:43 81 98 02/15/20 06:38 80 97 02/15/20 06:37 104 H 94 02/15/20 06:33 83 99 02/15/20 06:28 88 99 Transfer of Care Handoff Completed per policy Notes Mental Status: alert / awake / arousable and participated in evaluation Nausea / Vomiting: adequately controlled Pain: adequately controlled Airway Patency, RR, SpO2: stable & adequate BP & HR: stable & adequate Hydration State: stable & adequate Neuraxial Anesthesia: was administered and sensory block is resolving Anesthetic Complications: no major complications apparent and Pt Satisfied with anesthetic care
[2020-02-15] MEDS ORDERED: ONDANSETRON INJ 2 MG/ML 2 ML VIAL IV PRN (17:33)
[2020-02-15] MEDS: DOCUSATE SODIUM 100 MG CAP PO SCH (21:47)
[2020-02-16] MEDS: IBUPROFEN 600 MG TAB PO PRN ×4 (00:43→19:06)
[2020-02-16 05:53] LABS: Hematocrit (blood only) 25.3 % (37-47); Hemoglobin 7.9 g/dL (12.0-16.0); Mean Corpuscular Hemoglobin 27.3 pg (25-34); Mean Corpuscular Hgb Conc 31.2 g/dL (32-36); Mean Corpuscular Volume 87.5 fL (80-100); Mean Platelet Volume 12.1 fL (7.4-10.4); Platelet Count 248 K/uL (130-400); RDW Coefficient of Variation 15.7 % (11.5-14.5); RDW Standard Deviation 50.6 fL (36.4-46.3); Red Blood Count 2.89 M/uL (4.2-5.4); White Blood Count 15.22 K/uL (4.8-10.8)
--- NOTE | 2020-02-16 07:04 | Obstetrical Progress Note ---
Date of Service <Kristopher Galaviz MD - Last Filed: 02/16/20 08:09> February 16, 2020 Assessment & Plan <Kristopher Galaviz MD - Last Filed: 02/16/20 08:09> (1) Spontaneous vaginal delivery: - PNL: Rh pos, RI, GBS neg, COVID neg - Feels well today. Eating well, voiding well, ambulating well. - Pain well controlled with ibuprofen 600mg Q4H PRN - Routine care - OOB, ambulation, diet progression as tolerated - After discharge will have 6 week follow-up with Dr. Nguyen Subjective <Kristopher Galaviz MD - Last Filed: 02/16/20 08:09> Ambulation: ambulating normally Voiding: no voiding problems Passing Gas:: Yes Diet Tolerance:: regular diet Lochia:: Small Constitutional: no fever and no chills Respiratory: no cough and no dyspnea Cardiovascular: no chest pain, no palpitations and no edema Gastrointestinal: no nausea and no vomiting Genitourinary (female): no dysuria Physical Exam <Kristopher Galaviz MD - Last Filed: 02/16/20 08:09> Constitutional no acute distress Respiratory normal respiratory effort, lungs clear to auscultation Cardiovascular RRR, no murmur, no edema Gastrointestinal (Abdomen) Inspection/Auscultation: normal bowel sounds Percussion/Palpation: abdomen soft Musculoskeletal no calf tenderness Genitourinary uterine fundus firm, palpable at the level of the umbilicus Results & Data ([facility]) <Kristopher Galaviz MD - Last Filed: 02/16/20 08:09> Vital Signs (Past 12 Hours) Vital Signs Temp Pulse Resp BP Pulse Ox 02/16/20 03:50 36.5 C 80 18 125/76 97 02/16/20 00:10 36.5 C 74 20 135/86 98 02/15/20 19:40 36.9 C 98 H 18 128/74 97 <Lincoln Nguyen MD, FACOG - Last Filed: 02/16/20 08:50> Co-Signing Physician Notes Resident Physician Supervision Note: I was present with [Anastacia] during the history and exam. I discussed the case with the resident and agree with the findings and plan as documented in the note. Any exceptions or clarifications are listed here: [None] Documented By: Lincoln Nguyen MD, FACOG Resident Activity Tracking <Kristopher Galaviz MD - Last Filed: 02/16/20 08:09> Resident Involvement: Resident Care Provided Care Provided: OB Delivery
[2020-02-16] MEDS ORDERED: PRENATAL VITAMIN 1 TAB PO SCH (08:00)
[2020-02-16] MEDS: PRENATAL VITAMIN 1 TAB PO SCH (09:17)
[2020-02-16] MEDS: DOCUSATE SODIUM 100 MG CAP PO SCH ×2 (09:17→19:59)
[2020-02-16] MEDS ORDERED: bisacodyL 5 MG TABEC PO SCH (20:00)
[2020-02-17] MEDS: IBUPROFEN 600 MG TAB PO PRN ×2 (05:26→09:29)
[2020-02-17 07:09] LABS: Hematocrit (blood only) 27.4 % (37-47); Hemoglobin 8.2 g/dL (12.0-16.0)
--- NOTE | 2020-02-17 07:35 | Obstetrical Progress Note ---
Date of Service <Kristopher Galaviz MD - Last Filed: 02/17/20 07:35> February 17, 2020 Assessment & Plan <Kristopher Galaviz MD - Last Filed: 02/17/20 07:35> (1) Spontaneous vaginal delivery: - PNL: Rh pos, RI, GBS neg, COVID neg - Feels well today. Eating well, voiding well, ambulating well. - Pain well controlled with ibuprofen 600mg Q4H PRN - Routine care - OOB, ambulation, diet progression as tolerated - Discharge today - After discharge will have 6 week follow-up with Dr. Nguyen Subjective <Kristopher Galaviz MD - Last Filed: 02/17/20 07:35> Ambulation: ambulating normally Voiding: no voiding problems Passing Gas:: Yes Diet Tolerance:: regular diet Lochia:: Small Constitutional: no fever and no chills Respiratory: no cough and no dyspnea Cardiovascular: no chest pain, no palpitations and no edema Gastrointestinal: no nausea and no vomiting Genitourinary (female): no dysuria Physical Exam <Kristopher Galaviz MD - Last Filed: 02/17/20 07:35> Constitutional no acute distress Respiratory normal respiratory effort, lungs clear to auscultation Cardiovascular RRR, no murmur, no edema Gastrointestinal (Abdomen) Inspection/Auscultation: normal bowel sounds Percussion/Palpation: abdomen soft Results & Data ([facility]) <Kristopher Galaviz MD - Last Filed: 02/17/20 07:35> Vital Signs (Past 12 Hours) Vital Signs Temp Pulse Resp BP Pulse Ox 02/16/20 23:45 36.8 C 79 18 127/79 98 <Michelle Benitez DO - Last Filed: 02/17/20 08:34> Co-Signing Physician Notes Resident Physician Supervision Note: I was present with Dr. Banks during the history and exam. I discussed the case with the resident and agree with the findings and plan as documented in the note. Any exceptions or clarifications are listed here: PPD#1, doing well, will be going to nesting status after DC tomorrow. Documented By: Michelle Benitez DO Resident Activity Tracking <Kristopher Galaviz MD - Last Filed: 02/17/20 07:35> Resident Involvement: Resident Care Provided Care Provided: OB Delivery
[2020-02-17] MEDS: PRENATAL VITAMIN 1 TAB PO SCH (09:29)
[2020-02-17] MEDS: DOCUSATE SODIUM 100 MG CAP PO SCH (09:29)
== END 2020-02-17 14:20 | disposition home or self-care (01) | DRG 807 ==
LOC: OPB 06:10 → 4S1 06:15 → 4S2 13:41

== ENCOUNTER 2022-09-05 07:43 | Inpatient (IN) ==
--- NOTE | 2022-09-05 08:02 | History & Physical Report ---
Date of Service September 05, 2022 Assessment & Plan (1) Encounter for induction of labor: Plan: - Plan for induction of labor for post dates. Epidural as desired (2) Need for MMR vaccine: Plan: - Rubella non-immune - Offer MMR post (3) Post-dates : Admission and Anticipated Discharge Date Admission Date: September 05, 2022 History of Present Illness Primary Care Provider: Cesar Lainez MD Nathalia is a 32 y/o female currently at 41 4/7 WGA with an JOAQUÍN 08/25/2022 as determined by LMP who is here for induction of labor. irregular contractions; + movement; no fluid loss; no bloody show- small amount of bleeding after membrane stripping yesterday External FHT and external uterine monitors used; Category 1 tracing; moderate FHT variability. Had regular appointments with OB. OB Labs: Blood Type O Positive 01/17/22 Antibody Screen NEGATIVE 01/17/22 Hemoglobin 10.0 g/dl (12.0-16.0) L 06/07/22 Hematocrit 30.8 % (34.1-44.9) L 06/07/22 Mean Corpuscular Volume 91.3 fL (80.0-100.0) 01/17/22 Platelet Count 347 K/uL (130-400) 01/17/22 Rubella IgG Antibody Non Immune (Immune) L 01/17/22 Rapid Plasma Reagin Nonreactive (Nonreactive) 01/17/22 Hepatitis B Surface Antigen Neg (Neg) 07/09/19 Hepatitis B Surface Antigen. NON-REACTIVE (NON-REACTIVE) 01/17/22 Hepatitis C Antibody (EIA) NON-REACTIVE (NON-REACTIVE) 01/17/22 HIV (1&2) Ab and P24 Ag, 4th Gener Neg (Neg) 07/09/19 HIV (1&2) Ag and Ab Confirmation NON-REACTIVE (NON-REACTIVE) 01/17/22 Glucose 1 Hour 50 gm Load 123 mg/dl (70-130) 06/07/22 OB Optional Labs: Chlamydia trachomatis RNA NOT DETECTED (NOT DETECTED) 01/17/22 Neisseria gonorrhoeae RNA NOT DETECTED (NOT DETECTED) 01/17/22 Thyroid Stimulating Hormone (TSH) 0.577 uIu/ml (0.300-4.500) 01/17/22 Labs Reviewed: No labs to pull forward from prior - HK cfdna-low risk--mln Declines cf/sma--mln declined afp--akh Allergies Allergy/AdvReac Type Severity Reaction Status Date / Time oxycodone AdvReac Intermediate Vomiting - Verified 09/04/22 08:57 from Percocet Home Medications Medication Instructions Recorded Confirmed Type albuterol sulfate 90 mcg/actuation 2 puff inhalation Q6H PRN 11/30/21 09/04/22 Rx aerosol inhaler (Ventolin HFA) shortness of breath or wheezing, or chest tightnes #6.7 grams prenat.vits,brandon,[id number] 1 tab PO DAILY 01/11/22 09/05/22 History amoxicillin 875 mg tablet 875 mg PO BID #14 tabs 08/29/22 09/05/22 Rx Patient History Medical History (Updated 09/05/22 @ 08:17 by Shantel Hoang, ) Abnormal quad screen (-) cfDNA Fertility testing History of COVID-19 06/2021 cough; no current issues, no hospitalization Meconium in amniotic fluid Normal labor PCOS (polycystic ovarian syndrome) no medication Seasonal allergies Spontaneous vaginal delivery Surgical History H/O oral surgery broken tooth repair History of bunionectomy left S/P appendectomy S/P dilation and curettage retained placenta Family History Father Hypothyroidism Lung cancer Sister Thyroid cancer Hypothyroidism Aunt Hypothyroidism Mother Ovarian cyst Fibroids Hypothyroidism Family/Other Twins, both liveborn Other No family history of adverse response to anesthesia Denies family history of Ovarian cancer Breast cancer Colorectal cancer Uterine cancer Social History (Updated 09/05/22 @ 08:09 by Posrche Guadalupe, JAYASHREE) Smoking Status: Never smoker Second Hand Exposure: No; Hx Alcohol Use: No Hx Substance Use: No Preferred Language: Vincentian Communication Ability: Effective Visual Impairment: No Limitations Hearing Ability: Normal Plastics Scientist Required: No Beliefs That Will Affect Care: None marital status: marital status details: Daniel Cordon (30) [phone] Current Living Situation: Spouse Current Living Situation Comment: lives with spouse, child, 2 dogs current occupational status: employed 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 Other Information That Helps Us Care for You: No Feels Safe at Home: Yes Safety Concerns: Feels Safe At This Time Childhood Exposure to Second-Hand Smoke: Yes caffeine: Yes during the past year weight has: remained stable Dental Care, Regularly: Yes Physical Activity Frequency: 1-2 Times per Week Seatbelt Use: sometimes Sunscreen Use: Yes Assistive Devices: None OB History History : 2 Full term: 1 Premature: 0 Total Number of Induced Abortions: 0 Total Number of Spontaneous Abortions: 0 Ectopics: 0 Multiple births: 0 Number of Living Children: 1 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 Denies breast pain. Denies dysuria. Denies headache or changes in vision. Physical Exam Physical Exam: General: Alert, oriented. No acute distress. Cardiac: Regular rate and rhythm, no murmurs/rubs/gallops. Respiratory: Clear to auscultation bilaterally a/p, no wheezes/rales/rhonchi. No increased work of breathing. Symmetrical chest rise. No respiratory distress. Abdomen: Gravid Pelvic: See attending attestation Lower Extremities: No lower extremity edema or swelling. No deep calf pain. Supervising Physician Co-Signing Physician Notes Resident Physician Supervision Note: I interviewed and examined the patient. Discussed with Dr. Hoang and agree with findings and plan as documented in the note. Any exceptions or clarifications are listed here: Cervix 4/90/-1 and FHT Cat 1. Pitocin order placed after d/w patient and FOB. Planning NCB without epidural. Documented By: Krystina Zaragoza MD, FACOG Resident Activity Tracking Resident Involvement: Resident Care Provided Care Provided: OB Delivery (post )
[2022-09-05] MEDS ORDERED: LIDOCAINE 1% LOCAL 20 ML VIAL INFIL PRN (08:12)
[2022-09-05] MEDS ORDERED: OXYTOCIN 30 UNITS/500 ML BAG IV PRN ×2 (08:12→09:11)
[2022-09-05 08:55] LABS: Hematocrit (blood only) 27.3 % (37.0-47.0); Hemoglobin 8.5 g/dl (12.0-16.0); Mean Corpuscular Hemoglobin 25.1 pg (25.0-34.0); Mean Corpuscular Hgb Conc 31.1 g/dL (32.0-36.0); Mean Corpuscular Volume 80.8 fL (80.0-100.0); Mean Platelet Volume 11.2 fL (9.4-12.4); Platelet Count 278 K/uL (130-400); RDW Coefficient of Variation 15.8 % (11.5-14.5); RDW Standard Deviation 46.1 fL (36.4-46.3); Red Blood Count 3.38 M/uL (4.20-5.40); White Blood Count 9.94 K/ul (4.8-10.8)
[2022-09-05] MEDS: LACTATED RINGER'S 1,000 ML IV PRN ×2 (08:59→12:42)
--- NOTE | 2022-09-05 11:48 | Labor Progress Brief Note ---
Date of Service September 05, 2022 Subjective Tolerating contractions, continues NCB attempt Assessment & Plan (1) Encounter for induction of labor: Plan: IOL for postdates, AROM/Pit, declines epidural. Admission and Anticipated Discharge Date Admission Date: September 05, 2022 Physical Exam Genitourinary: [place] Q3 FHT Cat 1 /-2 AROM clear fluid Results & Data Vital Signs (Past 12 Hours) Vital Signs Temp Pulse Resp BP 09/05/22 08:11 98.4 F 18 09/05/22 11:09 97.9 F 97 H 20 119/67 09/05/22 10:31 98 H 20 106/54 L 09/05/22 09:51 102 H 114/62 09/05/22 08:06 101 H 137/63 Coding Level of Care Code None Diagnoses Encounter for induction of labor Z34.90
[2022-09-05] MEDS ORDERED: ONDANSETRON INJ 2 MG/ML 2 ML VIAL IV PRN (12:00)
[2022-09-05] MEDS ORDERED: ePHEDrine sulfate 50 MG/ML AMP ONE (12:11)
[2022-09-05] MEDS ORDERED: BUPIVACAINE 0.25% PF 30 ML VIAL ONE (12:12)
[2022-09-05] MEDS ORDERED: LIDOCAINE 2%/EPINEPHRINE 1:200,000 20 ML PF ONE (12:12)
[2022-09-05] MEDS ORDERED: SODIUM CHLORIDE 0.9% PF INJ 10 ML VIAL ONE (12:12)
[2022-09-05] MEDS ORDERED: fentaNYL citrate PF 100 MCG/2 ML VIAL ONE (12:12)
[2022-09-05] MEDS ORDERED: fentaNYL 2MCG/ML ROPIVACAINE 1.25MG/ML 100 ML BAG EPI ONE (12:13)
--- NOTE | 2022-09-05 13:09 | Anesthesiology Consultation ---
Date of Service September 05, 2022 Assessment & Plan Chart Review Chart Review: Acceptable Risk for Labor Epidural Consults Requested none History Height/Weight Height: 5 ft 2 in Weight: 64.41 kg Allergies Allergy/AdvReac Type Severity Reaction Status Date / Time oxycodone AdvReac Intermediate Vomiting - Verified 09/04/22 08:57 from Percocet Medications Home Medications Medication Instructions Recorded Confirmed Last Taken albuterol sulfate 90 mcg/actuation 2 puff inhalation Q6H PRN 11/30/21 09/04/22 Unknown aerosol inhaler (Ventolin HFA) shortness of breath or wheezing, or chest tightnes #6.7 grams prenat.vits,brandon,[id number] 1 tab PO DAILY 01/11/22 09/05/22 Unknown amoxicillin 875 mg tablet 875 mg PO BID #14 tabs 08/29/22 09/05/22 09/04/22 Active Medications Generic Name Dose Route Start Last Admin Trade Name Freq PRN Reason Stop Dose Admin Lactated Ringer's 1,000 mls @ 125 mls/hr 09/05/22 08:12 09/05/22 12:42 Lr IV 09/07/22 08:11 999 mls/hr .Q8H PRN Administration L&D Protocol Protocol Oxytocin 30 units in 500 mls @ 5 mls/hr 09/05/22 09:11 09/05/22 11:25 Pitocin IV 09/07/22 09:10 0.3 units/hr .Q24H PRN 5 mls/hr Labor Induction/Augmentation Titration Protocol 0.3 UNITS/HR Ondansetron HCl 4 mg 09/05/22 12:00 09/05/22 12:22 Ondansetron Inj 2 Mg/Ml 2 Ml Vial IV 10/05/22 11:59 4 mg Q4H PRN Administration Nausea Past Medical History Medical History (Updated 09/05/22 @ 08:17 by Shantel Hoang DO) Abnormal quad screen (-) cfDNA Fertility testing History of COVID-19 06/2021 cough; no current issues, no hospitalization Meconium in amniotic fluid Normal labor PCOS (polycystic ovarian syndrome) no medication Seasonal allergies Spontaneous vaginal delivery Past Family History Family History Father Hypothyroidism Lung cancer Sister Thyroid cancer Hypothyroidism Aunt Hypothyroidism Mother Ovarian cyst Fibroids Hypothyroidism Family/Other Twins, both liveborn Other No family history of adverse response to anesthesia Denies family history of Ovarian cancer Breast cancer Colorectal cancer Uterine cancer Past Surgical History Surgical History H/O oral surgery broken tooth repair History of bunionectomy left S/P appendectomy S/P dilation and curettage retained placenta Social History Smoking Status: Never smoker Hx Alcohol Use: No Alcohol type: beer, wine and hard liquor alcohol intake frequency: a few times a week Hx Substance Use: No substance use type: does not use Physical Exam Vital Signs Last Vital Signs Temp 36.8 C 09/05/22 13:00 Pulse 93 H 09/05/22 13:08 Resp 18 09/05/22 13:06 BP 103/59 L 09/05/22 13:08 Pulse Ox 99 09/05/22 13:07 Testing Laboratory Results 09/05/22 08:25
[2022-09-05] MEDS ORDERED: NALOXONE HCL 1 MG in SODIUM CHLORIDE 0.9% 1000ML 1,000 ML IV PRN (13:12)
[2022-09-05] MEDS ORDERED: ePHEDrine sulfate 50 MG/ML AMP IV PRN (13:12)
[2022-09-05] MEDS ORDERED: fentaNYL 2MCG/ML ROPIVACAINE 1.25MG/ML 100 ML BAG EPI PRN (13:12)
[2022-09-05] MEDS ORDERED: diphenhydrAMINE 50 MG/ML VIAL IV PRN (13:12)
[2022-09-05] MEDS ORDERED: NALOXONE HCL 0.4 MG/1 ML VIAL/CARP IV PRN (13:12)
[2022-09-05] MEDS ORDERED: NALBUPHINE HCL INJ 10 MG/ML AMP IV PRN (13:12)
--- NOTE | 2022-09-05 14:51 | Delivery Summary ---
Vaginal Delivery Summary Date of Service September 05, 2022 Vaginal Delivery Summary DIAGNOSES: 1. M[place]han intrauterine at 41w4d gestation. 2. Induction of labor. 3. Group B Streptococcus Neg. PROCEDURE: Spontaneous vaginal delivery and repair of 1st degree perineal laceration. SURGEON: Krystina Zaragoza MD. RAIL SWITCH OPERATOR: None. ESTIMATED BLOOD LOSS: 300 mL. COMPLICATIONS: None. PLACENTA: Spontaneous and intact with a 3-vessel cord. DISPOSITION: Stable to labor and delivery. DESCRIPTION: The patient pushed well and brought the head to in IRINA position. The infant's head was allowed to deliver with contraction force and no further active pushing, with the perineum protected during this time. There was one nuchal cord, reduced at the perineum. The right shoulder was anterior. The shoulders and body delivered without any difficulty, and the infant was placed on the maternal abdomen. It was vigorous and moving all extremities, and making respiratory efforts. The cord was doubly clamped by the MD and then cut. The placenta delivered spontaneously and was noted to be intact and with a 3VC. The cervix, vagina and perineum were examined and were found to have a shallow 1st degree laceration just left of midline on the perineum, extending about 1.5cm from the vaginal verge, which was repaired with 3-0 vicryl in a running locked manner. The fundus was firm and lochia minimal immediately after delivery. [facility] Vaginal Delivery Charge Vaginal Delivery Codes: 39955 global code for the antepartum, delivery, and post-
[2022-09-05] MEDS ORDERED: HYDROCORTISONE ACETATE 25 MG SUPP PR PRN (15:02)
[2022-09-05] MEDS ORDERED: oxyCODONE/ACETAMINOPHEN 5mg/325mg TAB PO PRN (15:02)
[2022-09-05] MEDS ORDERED: ACETAMINOPHEN 325 MG TAB PO PRN (15:02)
[2022-09-05] MEDS ORDERED: DIPHTHERIA/TETANUS/PERTUSSIS 0.5mL SYR/VIAL (Age 7+yrs) IM ONE (15:02)
[2022-09-05] MEDS ORDERED: BENZOCAINE 20% AER SPR 82.5 GM CAN EXT PRN (15:02)
--- NOTE | 2022-09-05 15:19 | Anesthesia Procedure Note ---
Date of Service September 05, 2022 Anesthesia Post Epidural Note Vital Signs Vital Signs: Temp Pulse Resp BP Pulse Ox 36.8 C 83 18 114/58 L 99 09/05/22 13:00 09/05/22 15:13 09/05/22 13:06 09/05/22 15:13 09/05/22 14:38 Notes Mental Status: alert / awake / arousable Nausea / Vomiting: adequately controlled Pain: adequately controlled Airway Patency, RR, SpO2: stable & adequate BP & HR: stable & adequate Hydration State: stable & adequate Neuraxial Anesthesia: was administered and sensory block is resolving Anesthetic Complications: no major complications apparent and Pt Satisfied with anesthetic care Epidural: Removed without complications and With tip intact
[2022-09-05] MEDS: IBUPROFEN 600 MG TAB PO PRN ×2 (17:46→22:00)
[2022-09-06] MEDS: IBUPROFEN 600 MG TAB PO PRN ×2 (02:07→15:39)
--- NOTE | 2022-09-06 05:14 | Obstetrical Progress Note ---
Date of Service <Shantel SChristiano Hoang DO - Last Filed: 09/06/22 06:09> September 06, 2022 Assessment & Plan <Shantel EsquivelChristiano Hoang DO - Last Filed: 09/06/22 06:09> (1) Status post vaginal delivery: Feels well today. Eating well, voiding well, ambulating well. - Routine care -- OOB, ambulation, diet progression as tolerated - After discharge will have 6 week follow-up (2) Need for MMR vaccine: - rubella non-immune offer MMR <Krystina Zaragoza MD - Last Filed: 09/06/22 07:00> (1) Status post vaginal delivery: (2) Need for MMR vaccine: Subjective <Shantel S. DO Viktor - Last Filed: 09/06/22 06:09> Nathalia is a 32 y/o female who is now PPD # 1 following vaginal delivery at 41 5/7 weeks. Reports feeling well overall this morning. Mild abdominal cramping, pain well managed on analgesics. Voiding. Tolerating meals overnight and able to ambulate some. Some persistent lochia with some improvement this morning. Bottle feeding. Review of Systems Denies fever, chills, sweats Denies shortness of breath, difficulty breathing, chest pain, palpitations, chest pressure. Denies breast pain. Denies dysuria. Denies headache or changes in vision. Physical Exam <Shantelsonia HoangDO - Last Filed: 09/06/22 06:09> General: Alert, oriented. No acute distress. Cardiac: Regular rate and rhythm, no murmurs/rubs/gallops. Respiratory: Clear to auscultation bilaterally a/p, no wheezes/rales/rhonchi. No increased work of breathing. Symmetrical chest rise. No respiratory distress. Abdomen: Soft, nontender, nondistended. Uterus: Uterine fundus firm, palpable 3 cm below umbilicus. Lower Extremities: No lower extremity edema or swelling. No deep calf pain. Results & Data <Shantel aCrlito Hoang DO - Last Filed: 09/06/22 06:09> Vital Signs (Past 12 Hours) Vital Signs Temp Pulse Pulse Resp BP BP Pulse Ox 09/06/22 03:03 36.9 C 86 18 115/74 97 03/30/23 23:23 36.8 C 80 18 111/69 97 09/05/22 21:00 36.7 C 80 19 115/74 98 09/05/22 19:03 37 C 85 18 124/65 97 09/05/22 17:40 36.8 C 92 H 18 115/70 98 09/05/22 17:18 36.9 C 87 20 117/59 L 09/05/22 17:13 93 H 119/56 L O2 Del Method 09/06/22 03:03 Room Air 09/05/22 23:23 Room Air 09/05/22 21:00 Room Air 09/05/22 19:03 Room Air 09/05/22 17:40 Room Air 09/05/22 17:18 09/05/22 17:13 <Krystina Zaragoza MD - Last Filed: 09/06/22 07:00> Co-Signing Physician Notes Resident Physician Supervision Note: I interviewed and examined the patient. Discussed with Dr. Hoang and agree with findings and plan as documented in the note. Any exceptions or clarifications are listed here: Multiparous patient recovering normally and desires D/C home today after 24 hr from delivery. Documented By: Krystina Zaragoza MD, FACOG Resident Activity Tracking <Shantel Hoang DO - Last Filed: 09/06/22 06:09> Resident Involvement: Resident Care Provided Care Provided: OB Delivery (post )
[2022-09-06 07:35] LABS: Mean Corpuscular Hemoglobin 25.4 pg (25.0-34.0); Mean Corpuscular Hgb Conc 30.8 g/dL (32.0-36.0); Mean Corpuscular Volume 82.5 fL (80.0-100.0); Mean Platelet Volume 11.1 fL (9.4-12.4); Platelet Count 252 K/uL (130-400); RDW Coefficient of Variation 15.8 % (11.5-14.5); RDW Standard Deviation 47.4 fL (36.4-46.3); Red Blood Count 3.15 M/uL (4.20-5.40); White Blood Count 13.71 K/ul (4.8-10.8)
[2022-09-06] MEDS ORDERED: PRENATAL VITAMIN 1 TAB PO SCH (08:00)
[2022-09-06] MEDS: DOCUSATE SODIUM 100 MG CAP PO SCH ×2 (08:23→08:24)
[2022-09-06] MEDS ORDERED: MEASLES, MUMPS & RUBELLA VIRUS VIAL SQ ONE (11:03)
== END 2022-09-06 19:34 | disposition home or self-care (01) | DRG 807 ==
LOC: 4S1 07:43 → 4E2 17:40